=== PATIENT | male | born 1960 | race Caucasian/White ===

== ENCOUNTER → 2018-06-19 12:45 | Outpatient (CLI) | payer MEDICAID ==
[2018-06-19 13:31] LABS: BASOPHILS 0.1 % (0-2); EOSINOPHILS 1.5 % (0-7); HEMATOCRIT 44.5 % (42.0-54.0); HEMOGLOBIN 15.2 g/dL (13.5-17.5); IMMATURE GRANULOCYTES 0.3 % (0-5); MCH 32.9 pg (26.0-34.0); MCHC 34.2 g/dL (31.0-37.0); MCV 96.3 fL (80.0-100.0); MEAN PLATELET VOLUME 11.2 fL (7.4-10.4); MONOCYTES 7.5 % (2-11); NEUTROPHILS 54.6 % (40-80); PLATELET COUNT 160 10x3/uL (130-400); RBC 4.62 10x6/uL (4.20-6.10); WBC 7.2 10x3/uL (4.8-10.8)
[2018-06-19 14:08] LABS: ALBUMIN 3.9 g/dL (3.4-5.0); ALKALINE PHOSPHATASE 45 U/L (46-116); ALT (SGPT) 40 U/L (10-68); CALC OSMOLALITY 279 mosm/kg (275-300); CARBON DIOXIDE 26.8 mmol/L (21.0-32.0); CHLORIDE - SERUM 105 mmol/L (98-107); CHOL - HDL RATIO 3.6 ratio (2.3-4.9); CHOLESTEROL, TOTAL 156 mg/dL (0-200); CREATININE - SERUM 0.8 mg/dL (0.6-1.3); GLUCOSE 101 mg/dL (74-106); HDL CHOLESTEROL 43 mg/dL (32-96); LDL CHOLESTEROL 99 mg/dL (0-100); LDL-HDL RATIO 2.3 ratio (1.5-3.5); PROTEIN - SERUM 7.7 g/dL (6.4-8.2); SODIUM 140 mmol/L (136-145); THYROID STIMULATING HORMONE 1.73 uIU/mL (0.36-3.74); TRIGLYCERIDE 71 mg/dL (30-200); UREA NITROGEN 14 mg/dL (7-18); eGFR NON AFRICAN AMERICAN > 90 mL/min (90-120)
[2018-06-20 08:20] LABS: HEPATITIS C ANTIBODY >11.0 (0.0-0.9)
== END | disposition home or self-care (01) ==
LOC: D.LAB 12:45
PROVIDERS: Family Medicine
DX: M19.90 Unspecified osteoarthritis, unspecified site (principal); F17.200 Nicotine dependence, unspecified, uncomplicated; R39.15 Urgency of urination

== ENCOUNTER → 2019-11-26 11:19 | Outpatient (CLI) | payer OTHER | END | disposition home or self-care (01) | LOC: D.CT 11:19 | PROVIDERS: ATTEND Thoracic Surgery (Cardiothoracic Vascular Surgery) | DX: I70.203 Unspecified atherosclerosis of native arteries of extremities, bilateral legs (principal) ==

== ENCOUNTER → 2019-12-10 08:51 | Outpatient (CLI) | payer OTHER | END | disposition home or self-care (01) | LOC: D.HCCARDIO 08:51 → D.HCCECHO 14:00 | PROVIDERS: ATTEND Internal Medicine Cardiovascular Disease | DX: I10 Essential (primary) hypertension (principal) ==

== ENCOUNTER 2019-12-19 06:11 | Outpatient (CLI) | payer OTHER ==
[~2019-12-19] VITALS: Ht 182.9 cm; Wt 86.4 kg
--- NOTE | ~2019-12-19 | HEMODYNAMI ---
PATIENT:FLORENTIN AWAD MEDICAL RECORD: [id number] : 60 LOCATION:D.CAT ADMISSION DATE: 12/19/19 Generatedon:12/19/20198:17 Patient name: FLORENTIN AWAD Patient #: [id number] SSN: [id number] : 1960 Date of study: 12/19/2019 Page: Of Hemodynamic Procedure Report Patient Data Patient Demographics Procedure consent was obtained First Name: FLORENTIN Gender: Male Last Name: DELMI : 1960 Middle Initial: TAISHA Age: 59 year(s) Patient #: [id number] Race: SSN: [id number] Additional ID: [id number] Contact details Address: [address] [place] [address] State: [place] City: [place] Zip code: [address] Past Medical History Performed procedures and imaging results Date Procedure Procedure Results Comments 12/10/2019 Stress testing Positive->Intermediate with SPECT MPI risk Allergies: No known allergies Admission Admission Data Admission Date: 12/19/2019 Admission Time: 6:11 Arrival Date: 12/19/2019 Arrival Time: 0:00 Admit Source: Other Insurance Payor: Private health insurance [facility] #: [id number] Height (in.): 72 BSA: 2.09 (m2) Height (cm.): 182.88 BMI: 25.82 (kg/m2) Weight (lbs.): 190.39 Weight (kg.): 86.36 Lab Results Lab Result Date: 12/19/2019 Lab Result Time: 0:00 Biochemistry Name Units Result Min Max BUN mg/dl 22 --(----)-* 7 18 Creatinine mg/dl 0.9 --(-*--)-- 0.6 1.3 eGFR ml/min 90 --(*---)-- 90 120 NONAFRICAN CBC Name Units Result Min Max Hematocrit % 42.3 --(*---)-- 42 54 Hemoglobin g/dl 14.1 --(*---)-- 13.5 17.5 Procedure Procedure Types Cath Procedure Diagnostic Procedure [facility] w/Coronaries Sedation Charges Moderate Sedation up to 15 minutes Procedure Description Procedure Date Procedure Date: 12/19/2019 Procedure Start Time: 8:01 Procedure End Time: 8:16 Procedure Staff Name Function Yonis Mathews MD Performing Physician Alberto Godwin RN Nurse Montserrat Puri RT Monitor Lindsey Prather RT Scrub Procedure Data Cath Procedure Fluoroscopy Diagnostic fluoroscopy Total fluoroscopy Time: 3.5 time: 3.5 min min Diagnostic fluoroscopy Total fluoroscopy dose: 450 dose: 450 mGy mGy Contrast Material Contrast Material Type Amount (ml) Isovue 370 70 Entry Location Entry Primary Successful Side Size Upsize Upsize Entry Closure Alex ccessful Closure Location (Fr) 1 (Fr) 2 (Fr) Remarks Device Remarks Radial Right 6 Fr Mechanical artery Short Compression Estimated blood loss: 5 ml Diagnostic catheters Device Type Used For End Catheter Placement DIAGNOSTIC Oliver 110cm Procedure 5Fr catheter ([id number]) DIAGNOSTIC Pigtail 5Fr Procedure catheter ([id number]) Procedure Complications No complications Procedure Medications Medication Administration Route Dosage Oxygen etCO2 Nasal cannula 2 l/min Lidocaine 2% added to field 20 Heparin Flush Bag added to field 2 bags (1000units/500ml NS) 0.9% NaCl I.V. 100 ml/hr Radial Cocktail I.A. 1 syringe (Verapamil 2mg/Nitro 400mcg/Heparin 1500units) Versed I.V. 2 mg Fentanyl I.V. 50 mcg Versed I.V. 1 mg Fentanyl I.V. 50 mcg Versed I.V. 1 mg Fentanyl I.V. 50 mcg Versed I.V. 1 mg Hemodynamics Rest BSA: 2.09 (m2) HGB: 14.1 (g/dl) O2 Consumption: Estimated: 241.12 (ml/min) O2 Co nsumption indexed: Estimated:115.37 (ml/min/m) Heart Rate: 64 (bpm) Pressure Samples Time Site Value (mmHg) Purpose Heart Use Rate(bpm) 8:05 LV 119/64,64 Snapshot 80 8:06 AO 124/78(98) Pullback 99 Gradients Valve Time Site Site 2 Mean SEP/DFP Peak To Heart Use 1 (mmHg) (sec/min) Peak Rate (mmHg) (bpm) Aortic 8:06 LV AO 99 124/78(98) Snapshots Pre Cath Intra NCS Post Cath Vital Signs Time Heart Resp SPO2 etCO2 NIBP Rhythm Pain Sedation Rate (ipm) (%) (mmHg) (mmHg) Status Level (bpm) 7:52:47 64 18 94 0 117/71(93) NSR 0 (11) 10(A) , No pain 7:57:01 61 14 93 0 113/70(89) NSR 0 (11) 10(A) , No pain 8:01:15 69 13 94 0 122/66(92) NSR 0 (11) 10(A) , No pain 8:06:39 68 12 93 0.7 118/62(74) NSR 0 (11) 9(A) , No pain 8:10:47 72 13 94 0 100/65(83) NSR 0 (11) 9(A) , No pain 8:16:10 66 12 94 0 100/56(67) NSR 0 (11) 10(A) , No pain Medications Time Medication Route Dose Verified Delivered Reason Notes Effectiveness by by 7:52:33 Oxygen etCO2 2 l/min Yonis Buffie used for Nasal Reid Godwin RN procedure cannula 7:52:39 Lidocaine 2% added 20ml Yonis Yonis for local to vial Reid Mathews MD anesthetic field 7:52:45 Heparin Flush added 2 bags Yonis Yonis used for Bag to Reid Mathews MD procedure (1000units/500ml field NS) 7:52:53 0.9% NaCl I.V. 100 Yonis Buffie Per ml/hr Reid Godwin RN physician 7:53:03 Radial Cocktail I.A. 1 Yonis Yonis for (Verapamil syringe Reid Mathews MD vasodilation 2mg/Nitro 400mcg/Heparin 1500units) 7:55:50 Versed I.V. 2 mg Yonis Buffie for sedation Reid Godwin RN 7:55:56 Fentanyl I.V. 50 mcg Yonis Buffie for sedation Reid Godwin RN 7:59:29 Versed I.V. 1 mg Yonis Buffie for sedation Reid Godwin RN 7:59:33 Fentanyl I.V. 50 mcg Yonis Buffie for sedation Reid Godwin RN 8:05:55 Versed I.V. 1 mg Yonis Buffie for sedation Reid Godwin RN 8:05:58 Fentanyl I.V. 50 mcg Yonis Dominguez for sedation Reid Godwin RN 8:10:08 Versed I.V. 1 mg Yonis Alberto for sedation Reid Godwin RN Procedure Log Time Note 7:24:01 Informed consent obtained and on chart 7:24:56 Lab Result : eGFR NONAFRICAN 90 ml/min 7::56 Lab Result : Creatinine 0.9 mg/dl 7::56 Lab Result : BUN 22 mg/dl 7:24:56 Lab Result : Hematocrit 42.3 % 7:24:56 Lab Result : Hemoglobin 14.1 g/dl 7:25:57 Arrival Date: 12/19/2019 12:00:00 AM 7:26:01 Admit Source: Other 7:26:06 Patient Height : 72 inches 7:26:11 Patient Weight : 190.39 lbs 7:26:18 Insurance Payor : Private health insurance 7:26:34 Diagnostic Cath Status : Elective 7:26:53 Patient allergic to No known allergies 7:27:41 Procedure Status Elective Heart Cath (OP). 7:27:42 Time tracking: Regular hours (M-F 7:00 - 5:00) 7:27:46 Plan of Care:Hemodynamics will remain stable., Cardiac rhythm will remain stable., Comfort level will be maintained., Respiratory function will remain adequate., Patient/ family verbilizes understanding of procedure., Procedure tolerated without complication., Recovers from procedure without complications.. 7:33:51 Alberto Godwin RN sent for patient. Start room use. 7:35:24 Lab results completed and on chart. 7:35:26 Stress Test: yes; abnormal MULTIVESSEL 7:35:30 Risk of Mortality: 0.1 7:35:32 Risk of blood transfusion: 0.1 7:35:35 Risk of AMARILIS: 0.1 7:35:37 Alarms reviewed by R. N. 7:35:37 Sharps counted by scrub and verified by R.N. 7:35:53 H&P Date Dictated: 11/28/2019 Within 30 days and on chart.. 7:35:55 Pre-procedure instructions explained to patient. 7:35:56 Pre-op teaching completed and patient verbalized understanding. 7:35:58 Family unavailable. 7:36:00 Patient NPO since Midnight. 7:39:32 Patient received from Pre/Post Procedure Room to CCL 1 Alert and oriented. Tansferred to table in Supine position. 7:39:33 Warm blankets applied, and arvind hugger turned on for patient comfort. 7:39:34 Correct patient and procedure confirmed by team. 7:39:34 ECG and BP/O2 sat monitors applied to patient. 7:39:42 Is the patient allergic to Iodine/contrast media? No. 7:39:44 Was the patient premedicated? N/A 7:39:48 Is patient on blood thinner?No 7:50:50 Patient diabetic? No. 7:50:52 If diabetic: On Metformin? N/A 7:50:54 ----Pre-sedation anethsthesia assessment.---- 7:50:57 Previous problem with sedation/anesthesia? No ? 7:50:58 Snore? Yes 7:50:59 Sleep apnea? No 7:51:00 Deviated septum? No 7:51:03 Sticks out tongue? Yes 7:51:07 Opens mouth fully? Yes 7:51:11 Airway obstruction? No ? 7:51:13 Dentures? No ? 7:51:16 Pre procedure: right dorsailis pedis pulse 2+ Normal; easily identifiable; not easily obliterated 7:51:18 Modified Pedro Luis's test Ulnar < 7 seconds 7:51:21 Patient pain scale 0/10 ?. 7:51:28 IV patent on arrival in left antecubital with 0.9% NaCl at O. 7:51:36 Right Radial & Right Groin area was prepped with chlora-prep and draped in sterile fashion 7:51:41 Full Disclosure recording started 7:51:42 Vital chart was started 7:51:48 Use device set Radial Dx or PCI 7:51:49 ACIST Syringe (68177) opened to sterile field. 7:51:50 Medline Cath Pack ([id number]) opened to sterile field. 7:51:50 Bag Decanter () opened to sterile field. 7:51:51 ACIST Hand Control (01287) opened to sterile field. 7:51:52 ACIST Manifold (19184) opened to sterile field. 7:51:53 MBrace Wrist Support ([id number]) opened to sterile field. 7:51:53 NEEDLE Cook 21G 4cm Radial ([id number]) opened to sterile field. 7:51:55 EMERALD Guide Wire (034-471) opened to sterile field. 7:51:55 SHEATH 6FR RAIN (5262571) opened to sterile field. 7:52:05 Baseline sample Acquired. 7:52:10 Rhythm: sinus rhythm 7:52:33 Oxygen 2 l/min etCO2 Nasal cannula was administered by Alberto Godwin RN; used for procedure; Verbal order read back and verified. 7:52:39 Lidocaine 2% 20ml vial added to field was administered by Yonis Mathews MD; for local anesthetic; Verbal order read back and verified. 7:52:45 Heparin Flush Bag (1000units/500ml NS) 2 bags added to field was administered by Yonis Mathews MD; used for procedure; Verbal order read back and verified. 7:52:53 0.9% NaCl 100 ml/hr I.V. was administered by Alberto Godwin RN; Per physician; Verbal order read back and verified. 7:53:03 Radial Cocktail (Verapamil 2mg/Nitro 400mcg/Heparin 1500units) 1 syringe I.A. was administered by Yonis Mathews MD; for vasodilation; Verbal order read back and verified. 7:53:56 --------ALL STOP TIME OUT------ 7:53:56 Final Timeout: patient, procedure, and site verified with staff and physician. All members of the team are in agreement. 7:53:58 Right Radial & Right Groin site verified by team. 7:54:02 Fire Safety Assessment: A--An alcohol-based skin anteseptic being used preoperatively., C--Open oxygen or nitrous oxide is being used., D--An ESU, laser, or fiber-optic light is being used. 7:54:07 Physical assessment completed. ASA score P 2 - A patient with mild systemic disease as per Yonis Mathews MD. 7:54:10 1) 90+ Normal kidney functon but urine findings or structural abnormalities or genetic trait point to kidney disease. 7:54:13 Maximum allowable contrast dose (3.7 X eGFR X 0.75)250 ml. 7:54:17 Sedation plan: IV Moderate Sedation Medication:Versed, Fentanyl 7:55:50 Versed 2 mg I.V. was administered by Alberto Godwin RN; for sedation; Verbal order read back and verified. 7:55:56 Fentanyl 50 mcg I.V. was administered by Alberto Godwin RN; for sedation; Verbal order read back and verified. 7:59:29 Versed 1 mg I.V. was administered by Alberto Godwin RN; for sedation; Verbal order read back and verified. 7:59:33 Fentanyl 50 mcg I.V. was administered by Alberto Godwin RN; for sedation; Verbal order read back and verified. 8:00:53 Procedure started. 8:01:01 Local anesthetic to right radial artery with Lidocaine 2% by Yonis Mathews MD.INITIAL ACCESS ONLY 8:02:40 A 6 Fr Short sheath was inserted into the Right Radial artery 8:03:40 A DIAGNOSTIC Oliver 110cm 5Fr catheter ([id number]) was advanced over the wire and used for Procedure. 8:05:39 Injector settings: Ml/sec: 5, Volume: 15, 8:05:41 LV gram done using RIVAS 8:05:43 LV hemodynamics recorded. 8:05:53 EF : 50 % 8:05:55 Versed 1 mg I.V. was administered by Alberto Godwin RN; for sedation; Verbal order read back and verified. 8:05:58 Fentanyl 50 mcg I.V. was administered by Alberto Godwin RN; for sedation; Verbal order read back and verified. 8:06:16 LCA angiography performed. 8:06:44 Injector settings: Ml/sec: 3, Volume: 6, 8:09:11 RCA angiography performed. 8:09:14 Injector settings: Ml/sec: 3, Volume: 6, 8:10:08 Versed 1 mg I.V. was administered by Alberto Godwin RN; for sedation; Verbal order read back and verified. 8:10:39 ACCDominant side:Co-Dominant 8:11:49 A DIAGNOSTIC Pigtail 5Fr catheter ([id number]) was advanced over the wire and used for Procedure. 8:11:50 Catheter removed. 8:13:29 ZEPHYR REGULAR TR BAND (206661) opened to sterile field. 8:13:54 Sheath removed intact; hemostasis achieved with Mechanical Compression to the Right Radial artery. 8:13:56 Procedure ended.(Physican Out) 8:14:44 Fluoroscopy time 03.50 minutes. 8:14:48 Fluoroscopy dose: 450 mGy 8:14:48 Flurop Dose total: 450 8:14:54 Dose Area Product 67353 mGy/cm. 8:15:05 Contrast amount:Isovue 370 70ml. 8:15:08 Maximum allowable dose exceeded? No. 8:15:09 Sharps counted by scrub and verified by R.N. 8:15:15 Post Procedure Pulses reassessed and unchanged 8:15:19 Post procedure: right dorsailis pedis pulse 2+ Normal; easily identifiable; not easily obliterated. 8:15:22 Post-procedure physical assessment completed. ASA score P 2 - A patient with mild systemic disease as per Yonis Mathews MD. 8:15:25 Post procedure rhythm: unchanged. 8:15:28 Estimated blood loss: 5 ml 8:15:29 Post procedure instruction explained to patient.Patient verbalizes understanding. 8:15:29 Patient needs reinforcement of post procedure teaching. 8:15:42 Procedure type changed to Cath procedure, Diagnostic procedure, LHC, [facility] w/Coronaries, Sedation Charges, Moderate Sedation up to 15 minutes 8:16:02 [place] band inflated with 7cc of air. 8:16:14 Procedure and supply charges have been captured, reviewed, submitted and are correct. 8:16:17 Procedure Complication : No complications 8:16:19 Vital chart was stopped 8:16:[address] [facility] Findings: MVD- MD will discuss options w/ pt 8:16:23 Operative report dictated upon procedure completion. 8:16:24 See physician's report for complete and final results. 8:16:26 Report given to Pre/Post Procedure Room. 8:16:30 Patient transfered to Pre/Post Procedure Room with Stretcher. 8:16:32 Procedure ended. 8:16:32 Full Disclosure recording stopped 8:16:38 End room use (Document Last) 8:16:50 End room use (Document Last) 8:17:08 End room use (Document Last) Device Usage Item Name Manufacture Quantity Catalog Hospital Part Current Minima l Lot# / Number Charge Number Stock Stock Serial# Code ACIST Acist 1 44541 [id number] 249493 030855 20 [employer] (32626Picmonic Inc Medline Medline 1 [id number] 33800 362129 5 Cath Pack ([id number]) Bag Microtek 1 108777 06420 312608 5 Decanter Medical Inc. () ACIST Hand Acist 1 93094 776885 577046 459778 5 Control Medical (58258) Systems Inc ACIST Acist 1 93730 381711 448201 732568 5 Manifold Medical (27772) Systems Inc MBrace Advanced 1 140-0250-00 853569 90062 411810 5 Wrist Vascular Support Dynamics ([id number]) NEEDLE Cook Cook Medical 1 [id number] 182815 511647 460445 5 21G 4cm Radial (I43286) EMERALD Cardinal 1 502-455 528179 176111 552895 5 Guide Wire Health (502-455) SHEATH 6FR Cardinal 1 8959485 814477 1424025 443118 5 [facility] (2630460) DIAGNOSTIC Terumo 1 405023 348108 480077 182289 5 Oliver 110cm 5Fr catheter (234340) DIAGNOSTIC Cardinal 1 [id number] 863727 098781 575838 5 Pigtail 5Fr Health catheter (372600I) ZEPHYR Cardinal 1 655528 347004 9688668 860193 5 REGULAR TR Health BAND (944914) Signature Audit Logan Stage Time Signature Unsigned Intra-Procedure 12/19/2019 Montserrat Puri 8:16:50 AM RT(R) Intra-Procedure 12/19/2019 Alberto Godwin RN 8:17:08 AM Intra-Procedure 12/19/2019 Yonis Mathews MD 8:17:57 AM [id number] [place] [address]
[2019-12-19] MEDS ORDERED: LISINOPRIL20 MG PO (06:21)
[2019-12-19] MEDS ORDERED: BAYER CHEWABLE81 MG PO (06:22)
[2019-12-19 06:38] VITALS: BP 128/68; Ht 182.9 cm; Wt 86.4 kg
[2019-12-19 06:58] LABS: BASOPHILS 0.3 % (0-2); HEMATOCRIT 42.3 % (42.0-54.0); HEMOGLOBIN 14.1 g/dL (13.5-17.5); IMMATURE GRANULOCYTES 0.4 % (0-5); LYMPHOCYTES 42.2 % (15-50); MCH 31.6 pg (26.0-34.0); MCHC 33.3 g/dL (31.0-37.0); MCV 94.8 fL (80.0-100.0); MEAN PLATELET VOLUME 10.7 fL (7.4-10.4); MONOCYTES 7.6 % (2-11); NEUTROPHILS 46.5 % (40-80); PLATELET COUNT 175 10x3/uL (130-400); RBC 4.46 10x6/uL (4.20-6.10); RDW 13.1 % (11.5-14.5)
[2019-12-19 07:12] LABS: ALT (SGPT) 17 U/L (10-68); CALC OSMOLALITY 278 mosm/kg (275-300); CARBON DIOXIDE 24.6 mmol/L (21.0-32.0); CHLORIDE - SERUM 105 mmol/L (98-107); CHOL - HDL RATIO 5.8 ratio (2.3-4.9); CHOLESTEROL, TOTAL 181 mg/dL (0-200); CREATININE - SERUM 0.9 mg/dL (0.6-1.3); GLUCOSE 104 mg/dL (74-106); HDL CHOLESTEROL 31 mg/dL (32-96); LDL CHOLESTEROL 124 mg/dL (0-100); SODIUM 138 mmol/L (136-145); TRIGLYCERIDE 132 mg/dL (30-200); UREA NITROGEN 22 mg/dL (7-18); eGFR NON AFRICAN AMERICAN > 90 mL/min (90-120)
--- NOTE | 2019-12-19 08:25 | NUR ---
PT RECEIVED VIA STRETCHER BACK TO ROOM 6 FOR RECOVERY. PT SLEEPING BUT VERBALLY AROUSABLE, DENIES PAIN OR DISCOMFORT. ZYPHER BAND AND IMMOBILIZER TO R WRIST/ARM, NO S/S BLEEDING OR HEMATOMA NOTED. ARM PINK AND WARM, CAP REFILL BRISK. PT INSTRUCTED NOT TO USE R ARM, HE VERBALIZED UNDERSTANDING. PT PLACED ON CARDIAC MONITORS AND O2 VIA NC AT 2L. HR NSR RATE 61, BP 93/54, RR 11 SAT 96. IV PATENT INFUSING VIA ORDERS TO L ARM. CALL LIGHT IN REACH
--- NOTE | 2019-12-19 08:45 | NUR ---
PT RESTING COMFORTABLY W/O COMPLAINTS. ZBAND AND IMMOBILIZER IN PLACE, NO S/S HEMATOMA. CAP REFILL BRISK. HR 69, BP 92/50, RR 16. CALL LIGHT IN REACH
--- NOTE | 2019-12-19 09:30 | NUR ---
PT MORE AWAKE, DENIES PAIN OR DISCOMFORT. ZBAND AND IMMOBILIZER IN PLACE, CAP REFILL BRISK NO S/S HEMATOMA OR BLEEDING. 4CC AIR REMOVED W/O BLEEDING OR SWELLING NOTED. HOB ELEVATED, COFFEE SERVED PER REQUEST. VSS. CALL LIGHT IN REACH
--- NOTE | 2019-12-19 10:05 | NUR ---
DR SIMEON AT BS DISCUSSING SURGERY OPTIONS. 3 ADD'L CC AIR REMOVED FROM Z BAND W/O BLEEDING NOTED. ARM PINK AND WARM, CAP REFILL BRISK. HR 55, BP 106/66, RR 16, SAT 95 ON ROOM AIR AFTER O2 REMOVED. PT DENIES PAIN OR NEEDS AT THIS TIME. 500 CC CLEAR YELLOW URINE OUT IN URINAL. CALL LIGHT IN REACH
--- NOTE | 2019-12-19 10:30 | NUR ---
DISCHARGE INSTRUCTIONS REVIEWED W PT HE VERBALIZED UNDERSTANDING. IV REMOVED W CATH INTACT, MONITORS AND O2 REMOVED. REMAINING AIR AND Z BAND REMOVED W/O BLEEDING OR SWELLING NOTED. 2X2 AND SM TEGADERM DRESSING APPLIED. IMMOBILIZER REPLACED. DR BECERRA FROM ANESTHESIA AT DISCUSSING SURGERY PLANS.
--- NOTE | 2019-12-19 11:00 | NUR ---
PT UP TO DRESS, WAITING ON LAB TO DRAW BLOOD THEN WILL DISCHARGE. RECOVERY COMPLETED.
--- NOTE | 2019-12-19 11:20 | NUR ---
PT DISCHARGED VIA WC TO S/O WAITING IN PRIVATE VEHICLE. PT HAD ALL BELONGINGS AND DISCHARGE INFORMATION IN HAND.
[2019-12-19 11:35] LABS: BILIRUBIN NEGATIVE (NEGATIVE); GLUCOSE NEGATIVE (NEGATIVE); KETONE NEGATIVE (NEGATIVE); NITRITE NEGATIVE (NEGATIVE); SPECIFIC GRAVITY 1.015 (1.005-1.020); UROBILINOGEN NORMAL (NORMAL)
== END 2019-12-19 11:20 | disposition home or self-care (01) ==
LOC: D.CATH 06:11
PROVIDERS: Thoracic Surgery (Cardiothoracic Vascular Surgery); ATTEND Internal Medicine Cardiovascular Disease
DX: I25.119 Atherosclerotic heart disease of native coronary artery with unspecified angina pectoris (principal); R94.39 Abnormal result of other cardiovascular function study; E78.5 Hyperlipidemia, unspecified; Z72.0 Tobacco use; G83.14 Monoplegia of lower limb affecting left nondominant side; I73.9 Peripheral vascular disease, unspecified; I10 Essential (primary) hypertension

== ENCOUNTER 2019-12-24 07:30 | Inpatient (IN) | payer OTHER ==
[~2019-12-24] VITALS: Ht 182.9 cm; Wt 96.2 kg
[~2019-12-24 07:30] MED LIST: BAYER CHEWABLE81 MG PO; LISINOPRIL20 MG PO
[2019-12-26] VITALS (24 sets, daily range): BP systolic 89–147; BP diastolic 41–76; BMI 25.3; BMI 26.3
--- NOTE | 2019-12-26 11:39 | NUR ---
PT ARRIVED TO UNIT AT THIS TIME VIA BED ACCOMPANIED BY HOSPITAL STAFF. PT ALERT BUT GROGGY. ANSWERS QUESTIONS APPROPIATELY. GROIN SITE, DRESSINGS, AND MIDLINE ABDOMEN INCISION SITE AND DRESSINGS CDI. NO S/S HEMATOMA OR DISCOLORATION. WILL CONTINUE PLAN OF CARE.
--- NOTE | 2019-12-26 12:57 | NUR ---
DR MARTI NOTIFIED OF CONSULT.
--- NOTE | 2019-12-26 13:11 | NUR ---
DR SIMEON NOTIFIED OF ABG RESULTS INCLUDING K LEVELS ON ABG, NO NEW ORDERS RECIEVED. VSS. NO ACUTE DISTRESS NOTED. WILL CONTINUE PLAN OF CARE.
--- NOTE | 2019-12-26 13:11 | NUR ---
DR MARQUES NOTIFIED OF CONSULT.
[2019-12-26 13:23] LABS: HEMATOCRIT 38.9 % (42.0-54.0); HEMOGLOBIN 12.9 g/dL (13.5-17.5); MCH 31.9 pg (26.0-34.0); MCHC 33.2 g/dL (31.0-37.0); MEAN PLATELET VOLUME 10.3 fL (7.4-10.4); RBC 4.05 10x6/uL (4.20-6.10); RDW 13.5 % (11.5-14.5); WBC 15.5 10x3/uL (4.8-10.8)
[2019-12-26 13:39] LABS: CALC OSMOLALITY 281 mosm/kg (275-300); CALCIUM 7.3 mg/dL (8.5-10.1); CHLORIDE - SERUM 105 mmol/L (98-107); GLUCOSE 118 mg/dL (74-106); POTASSIUM - SERUM 4.5 mmol/L (3.5-5.1); SODIUM 140 mmol/L (136-145); UREA NITROGEN 17 mg/dL (7-18); eGFR NON AFRICAN AMERICAN 81 mL/min (90-120)
[2019-12-26 13:45] LABS: ALBUMIN 3.2 g/dL (3.4-5.0); ALKALINE PHOSPHATASE 36 U/L (30-120); ALT (SGPT) 15 U/L (10-68); BILIRUBIN - TOTAL 0.92 mg/dL (0.2-1.3); PROTEIN - SERUM 5.5 g/dL (6.4-8.2)
--- NOTE | 2019-12-26 14:42 | NUR ---
LYING IN BED RESTING AT THIS TIME, RESPIRATIONS STEADY AND UNLABORED. VSS. NO ACUTE DISTRESS NOTED. AWAKENS WHEN SPOKEN TO. GROIN SITES KEPS STRAIGHT, ALL DRESSINGS AND INCISIONAL SITES NOTED CDI WITH NO S/S HEMATOMA. WILL CONTINUE PLAN OF CARE.
--- NOTE | 2019-12-26 16:03 | NUR ---
NO ACUTE DISTRESS NOTED. NO CHANGE. VSS. INCISION SITES CDI, NO S/S HEMATOMA. CALL LIGHT IN REACH. PT BEGINNING TO BECOME MORE ALERT, HOWEVER STILL RESTING. RESPIRATIONS STEADY AND UNLABORED, AWAKENS EASILY WHEN STAFF WALKS INTO ROOM. WILL CONTINUE PLAN OF CARE.
--- NOTE | 2019-12-26 17:29 | NUR ---
RECIEVED CALL FROM PTS SISTER, UPDATES PROVIDED AFTER SISTER STATED PASSWORD, EMERGENCY CONTACT INFORMATION UPDATED. VSS. NO ACUTE DISTRESS NOTED. WILL CONTINUE PLAN OF CARE.
--- NOTE | 2019-12-26 17:57 | NUR ---
DR SIMEON CONTACTED FOR IV FLUID CLARIFICATION, ORDERS RECIEVED FOR D5 1/2 NS WITH 20MEQ K AT 100ML/HR. ALSO STATED TO KEEP PT WITH STRICT NPO, AND THAT PT WILL BE NPO FOR THE NEXT FEW DAYS. ORDERS PLACED.
--- NOTE | 2019-12-26 18:38 | NUR ---
PT HAS LAID FLAT X 6H POSTOP. ALL SITES CDI, DRESSINGS CDI, NO S/S HEMATOMA. ALL PULSES PALPABLE. PT SITTING UP IN BED WATCHING TV. ALSO NOTED TEMP 37.8 CELCEUS, DR SIMEON NOTIFIED.
--- NOTE | 2019-12-26 19:00 | NUR ---
RE[PORT RECEIVED AT BEDSIDE, SHIFT ASSESSMENT COMPLEE PER FLOW SHEET, PT AAOx4, ANSWERES ALL QUESTIONS APPROPRIATLY, HOB ELEVATED 30 DEGREES, RT IJ CVL PATENT DRSG C/D/I, EPIDURAL SIE AND DRSG C/D/I PUMP INFUSING 8ML/HR CONTINUOUS WITH 4 ML Q15 MIN PUBLICATION DESIGNER DOSE, PUBLICATION DESIGNER TEACHING COMPLETED AND CONTROLLER IN REACH, PT DENIES PAIN, SENSORY AND MOTOR FUNCTION INTACT IN ALL EXTREMITIES, RT RADIAL ART & CVP LINES ZEROED WITH GOOD WAVEFORM NOTED ON CM, MID ABDOMINAL INCISION SITE AND DRSG C/D/I, BILATERAL GROIN INCISION SITES AND DRG'S C/D/I ITH NO S/S OF BLEED OR DISCOLORATION, CRITICORE LUNA CATH IN PLACE, PT ON NC @ 4L/MIN, I/S TEACHING AND USE COMPLETED [id number], TCDB DONE, NGT TO LIS VIA RIGHT NARE, VSS NSR ON CM, CALL LIGHT IN REACH, BED ALARM ON, FALL TEACHING PROVIDED AND INTERVENTIONS IN PLACE, PT DENIES NEEDS AT THIS TIME, WILL CONTINUE TO MONITOR
--- NOTE | 2019-12-26 19:07 | NUR ---
DR SIMEON NOTIFIED OF TEMP 99.3, STATED TO SIT PT UP, HAVE HIM COUGH, AND USE IS.
--- NOTE | 2019-12-26 19:30 | NUR ---
PT C/O ACUTE NAUSEA FEELING, PRN ZOFRAN GIVEN PER MAR/ORDERS, PT STATED NAUSEA RELEIF WITH MEDICATION, VSS, NSR ON CM, WILL CONTINUE TO MONITOR
--- NOTE | 2019-12-26 20:20 | NUR ---
ZACHARY RETURNS SUPERVISOR WITH ANESTHESIA AT BEDSIDE, EPIDURAL ORDERS REVIEWED AND PLACED, INFORMED ZACHARY RETURNS SUPERVISOR ABOUT PT'S ACUTE EPISODE OF NAUSEA THAT WAS RESOLVED WITH PRN ZOFRAN MED, PT VSS, NSR ON CM, DENIES PAIN OR NEEDS AT THIS TIME, WILL CONTINUE TO MONITOR
--- NOTE | 2019-12-26 23:00 | NUR ---
REASSESSMENT COMPLETE, NO ACUTE CHANGES FROM PRIOR ASSESSMENT, PT SLEEPING WAKES TO MINIMAL STIMULI WHEN RN ENTERS ROOM, PT WAKES AAOx4, DENIES PAIN OR NEEDS AT THIS TIME, ALL DRSG'S C/D/I, ALL PULSES PALPABLE, VSS, NSR ON CM, I/S COMPLETED 200-2500ML x10 WITH GOOD EFFORT, TCDB DONE, CALL LIGHT IN REACH, BED ALARM ON, WILL CONTINUE TO MONITOR
[2019-12-27] VITALS (35 sets, daily range): BP systolic 106–145; BP diastolic 42–77; Ht 182.9 cm; Wt 96.2 kg
--- NOTE | 2019-12-27 01:00 | NUR ---
PT RESTING IN BED COMFORTABLY, DENIES PAIN OR NEEDS AT THIS TIME, VSS, NSR ON CM, CALL LIGHT IN REACH, BED ALARM ON, WILL CONTINUE TO MONITOR
--- NOTE | 2019-12-27 03:00 | NUR ---
REASSESSMENT COMPLETE, NO ACUTE CHANGES FROM PRIOR ASSESSMENT, PT SLEEPING, WAKES AAOx4, DENIES PAIN OR NEEDS AT THIS TIME, I/S COMPLETED [id number] GOOD EFFORT TCDB DONE, VSS, NSR ON CM, DRSG'S C/D/I, ALL PULSES PALPABLE, REPOSITIONED IN BED FOR COMFORT, CALL LIGHT AND NUTRITION INTERNSHIP CONTROLLER IN REACH, BED ALARM ON, WILL CONTINUE TO MONITOR
[2019-12-27 05:43] LABS: HEMATOCRIT 35.6 % (42.0-54.0); HEMOGLOBIN 11.5 g/dL (13.5-17.5); MCHC 32.3 g/dL (31.0-37.0); MEAN PLATELET VOLUME 10.6 fL (7.4-10.4); RBC 3.71 10x6/uL (4.20-6.10); RDW 13.6 % (11.5-14.5)
[2019-12-27 05:51] LABS: WBC 11.4 10x3/uL (4.8-10.8)
[2019-12-27 05:59] LABS: ALBUMIN 2.8 g/dL (3.4-5.0); ALKALINE PHOSPHATASE 34 U/L (30-120); BILIRUBIN - TOTAL 0.67 mg/dL (0.2-1.3); CALC OSMOLALITY 276 mosm/kg (275-300); CALCIUM 7.2 mg/dL (8.5-10.1); CARBON DIOXIDE 24.4 mmol/L (21.0-32.0); CHLORIDE - SERUM 106 mmol/L (98-107); CREATININE - SERUM 0.8 mg/dL (0.6-1.3); GLUCOSE 131 mg/dL (74-106); POTASSIUM - SERUM 4.2 mmol/L (3.5-5.1); PROTEIN - SERUM 5.7 g/dL (6.4-8.2); SODIUM 137 mmol/L (136-145); UREA NITROGEN 15 mg/dL (7-18); eGFR NON AFRICAN AMERICAN > 90 mL/min (90-120)
[2019-12-27 06:05] LABS: ALT (SGPT) 19 U/L (10-68)
--- NOTE | 2019-12-27 08:18 | NUR ---
PT AWAKE AND ORIENTED. VSS, NITRO AT 5MCG. ALL ALARMS SET.
--- NOTE | 2019-12-27 10:40 | OP ---
PATIENT NAME: FLORENTIN AWAD MEDICAL RECORD: [id number] :60 LOCATION:D.CVI D.CV03 ADMISSION DATE:12/26/19 SURGEON: MORGAN SIMEON MD DATE OF OPERATION: 12/26/2019 SURGEON: Morgan Simeon MD PROCEDURE PERFORMED: Aortobifemoral bypass utilizing 12 x 6 bifurcated Hemashield graft. PREOPERATIVE DIAGNOSES: Aortoiliac occlusive disease with short distance claudication and early rest pain. COMPLICATIONS: None. SPECIMENS: None. CONDITION: Stable. DISPOSITION: CV ICU. BLOOD LOSS: 200 cc with 90 cc Cell Saver. OPERATIVE FINDINGS: 1. Severe aortic calcification below the renals with 1 relatively soft spot, the posterior wall calcium was removed and pledgeted sutures were used on the posterior wall and the proximal anastomosis. The distal aorta was transected and oversewn just above the bifurcation with excellent backflow after femoral anastomoses requiring oversewing of this stump with pledgeted sutures as well. 2. Right retroperitoneal vein bleeding responded to packing, no bleeding after reversal of heparin. 3. The left distal femoral as noted on the angiogram had severe posterior wall disease, so the distal half of the Cobra head was taken out over the superficial femoral. The patient had good Doppler signals, posterior tibial, dorsalis pedis at the conclusion of the case. OPERATIVE INDICATION: Claudication and early rest pain. PROCEDURE IN DETAIL: The patient brought to the operative suite. General anesthesia was obtained. The patient was prepped and draped. Vertical incision was made over both groin taken down to the common femoral, superficial femoral, profunda femoral, which were dissected out and encircled with vessel loops. Abdominal incision was made. Peritoneum was entered. The exploration revealed no masses. NG tube was in appropriate position. Transverse mesocolon was retracted upwardly. The retroperitoneum was identified by moving the small intestines to the right and actually layer off and out of the abdomen. They were packed out of the way. Retroperitoneum was entered. The infrarenal abdominal aorta was dissected out. A couple of large lumbar branches were encircled with vessel loops. Tunnels were made between the groin and both iliac arteries. Heparin was given. After the heparin had circulated, the inflow was clamped. The iliacs were clamped. The aorta was transected distally. Stump was oversewn. A 12 x 6 bifurcated Hemashield was brought into the wound, this sutured into place. Pledgeted sutures were used posteriorly. The graft was flushed. There was no bleeding at the anastomotic site. The graft limbs were OPERATIVE REPORT [id number] FLORENTIN AWAD brought through the retroperitoneum, and first the right and then the left were sutured onto the femoral arteries. Backbleeding was allowed. The graft was flushed and the anastomosis was completed after deairing and flow was restored, first to the right than the left. Good Doppler signals were noted, good augmentation. Retroperitoneal bleeding had stopped after reversal of the heparin and thorough irrigation was undertaken. The retroperitoneum was closed. The intestines were returned to the anatomic position and thorough irrigation with 1 liter of antibiotic saline was performed. The abdomen was closed with fascia, subcutaneous and clips. The groins were closed with 2 layers after antibiotic irrigation and skin clips. The patient is stable to ICU. TRANSINT:[id number] Voice Confirmation ID: [id number] DOCUMENT ID: [id number] MORGAN SIMEON MD at 1040 CC: NADIR TOMLIN M.D. and TANYA MARTI [id number] DICTATION DATE: 12/26/19 1159 COMMUNITY AMBASSADOR: 12/26/19 1253 ADM IN [facility] [id number] [place] [address]
--- NOTE | 2019-12-27 11:50 | NUR ---
DR SIMEON HERE. DOPPLER PULSES POSITIVE DP AND PT BLE. ART LINE DCD AND DSNG APPLIED AFTER PRESSURE HELD.
--- NOTE | 2019-12-27 13:44 | NUR ---
PT DANGLED AT BS, AIR OVERLAY MATTRESS APPLIED TO BED.
--- NOTE | 2019-12-27 17:56 | MORECARE ---
CASE MANAGEMENT DISCHARGE SUMMARY PATIENT: FLORENTIN AWAD UNIT: [id number] ADM DATE: 12/26/19 AGE: 59 : 60 SEX: M ROOM/BED: D.03 AUTHOR: JARET,DOC PHYSICIAN: REFERRING PHYSICIAN: DENIS ISMEON MD DATE OF SERVICE: 12/27/19 Discharge Plan Patient Name: FLORENTIN AWAD Facility: [facility]:[place] : 1960 Planned Disposition: Home Anticipated Discharge Date: Discharge Date: Expected LOS: Initial Reviewer: [email or web address] Initial Review Date: 12/26/2019 Generated: 12/27/19 6:56 pm Comments DCP- Discharge Planning Updated by [email or web address]: Michelle Butler on 12/27/19 4:[address] Patient Name: FLORENTIN AWAD Admission Status: Urgent Accout number: [id number] Admission Date: 12-26-2019 : 1960 Admission Diagnosis: Attending: DENIS SIMEON Current LOS: 1 Anticipated DC Date: Planned Disposition: Home Primary Insurance: [employer] Discharge Planning Comments: CM spoke with patient to complete initial dc planning assessment. CM educated patient on the CM role and verbal consent given by patient to complete assessment. Patient lives at home with family where he is independent with his care. At discharge plans to return home. CM discussed availability of home health, rehab services, and medical equipment. Patient will have family to transport him home. Patient denies any known discharge needs at this time. CM will continue to follow and will assist as needed with dc plans/needs. Wind Operations Supervisor: Michelle Butler DCPIA - Discharge Planning Initial Assessment Updated by [email or web address]: Michelle Butler on 12/27/19 5:50 pm * Is the patient Alert and Oriented? Yes * How many steps to enter\exit or inside your home? * PCP FIGUEROA * Pharmacy [facility] * Preadmission Environment Home with Family * ADLs Independent * Equipment None * List name and contact numbers for known caregivers / representatives who currently or will assist patient after discharge: HUGH OVALLE - [phone] * Verbal permission to speak to the caregivers and representatives has been obtained from the patient. Yes * Community resources currently utilized None * Additional services required to return to the preadmission environment? No * Can the patient safely return to the preadmission environment? Yes * Has this patient been hospitalized within the prior 30 days at any hospital? No Patient Name: FLORENTIN AWAD Page [phone] at 1756 All edits/amendments must be made on the electronic document DICTATION DATE: 12/27/191755 CREATIVE GURU: CHEN 12/27/191755 RPT#: [id number] DC DATE: STATUS: ADM IN [facility] [address] [place] [address] END OF REPORT
--- NOTE | 2019-12-27 19:00 | NUR ---
PT ASSESSMENT COMPLETED AT THIS TIME, NO CHANGES NOTED FROM NURSE REPORT, PT AWAKE AND USING IS, PULSES 2+ STRONG DOPPLER BILAT. PT DENIES COMPLAINTS, VSS, WILL MONITOR FOR CHANGES
--- NOTE | 2019-12-27 20:54 | NUR ---
PT C/O FEELING HOT TEMP WAS RECHECKED AND NOTED TO BE 100.5 ORAL
--- NOTE | 2019-12-27 20:59 | NUR ---
DR SIMEON CALLED AND UPDATED ON TEMP, ORDERS GIVEN FOR TYLENOL SUPP IF TEMP 102<, MD ALSO ADVISED TO HAVE PATIENT COUGH MORE AND USE IS TO IMPROVE LUNG FUNCTION
--- NOTE | 2019-12-27 23:00 | NUR ---
PT REASSESSMENT COMPLETED AT THIS TIME, NO CHANGES NOTED FROM PREVIOUS EXAM, VSS, WILL MONITOR FOR CHANGES
[2019-12-28] VITALS (23 sets, daily range): BP systolic 115–145; BP diastolic 56–76
--- NOTE | 2019-12-28 01:00 | NUR ---
PT RESTING WITH EYES CLOSED, RESP EVEN AND NON LABORED, VSS, WILL MONITOR FOR CHANGES
--- NOTE | 2019-12-28 03:00 | NUR ---
PT REASSESSMENT COMPLETED AT THIS TIME, NO CHANGES NOTED FROM PREVIOUS EXAM, VSS WILL MONITOR FOR CHANGES
--- NOTE | 2019-12-28 05:00 | NUR ---
PT RESTING WITH EYES CLOSED, RESP EVEN AND NON LABORED, VSS, WILL MONITOR FOR CHANGES
[2019-12-28 06:07] LABS: HEMATOCRIT 37.2 % (42.0-54.0); HEMOGLOBIN 12.4 g/dL (13.5-17.5); MCH 31.7 pg (26.0-34.0); MCHC 33.3 g/dL (31.0-37.0); MCV 95.1 fL (80.0-100.0); MEAN PLATELET VOLUME 10.8 fL (7.4-10.4); RBC 3.91 10x6/uL (4.20-6.10); WBC 12.3 10x3/uL (4.8-10.8)
[2019-12-28 06:32] LABS: ALBUMIN 3.1 g/dL (3.4-5.0); ALKALINE PHOSPHATASE 42 U/L (30-120); ALT (SGPT) 20 U/L (10-68); BILIRUBIN - TOTAL 0.97 mg/dL (0.2-1.3); CALC OSMOLALITY 265 mosm/kg (275-300); CALCIUM 8.4 mg/dL (8.5-10.1); CARBON DIOXIDE 24.3 mmol/L (21.0-32.0); CHLORIDE - SERUM 100 mmol/L (98-107); CREATININE - SERUM 0.8 mg/dL (0.6-1.3); GLUCOSE 128 mg/dL (74-106); PROTEIN - SERUM 6.6 g/dL (6.4-8.2); SODIUM 133 mmol/L (136-145); UREA NITROGEN 8 mg/dL (7-18); eGFR NON AFRICAN AMERICAN > 90 mL/min (90-120)
--- NOTE | 2019-12-28 07:00 | NUR ---
AWAKE EASILY TO VERBAL STIMULI SKIN WARM AND DRY. BACK EPIDURAL DRESSING DRY AND INTACT. CONTINUES TO INFUSE AT 8 ML HOUR CONTINUES. DENIES PAIN EXCEPT WHEN HE MOVES THEN SOME ABD PAIN. COCCYX AREA VERY RED DOES NOT DARRYL. FIRST MATTRESS ON BED. ABD AND BILATERAL FEMEROL DRESSINGS DRY AND INTACT. DENIES ANY NUMBNESS OR TINGLING ANY WHERE. IV RIJ DRESSING DRY AND INTACT INFUSING WITH D51/2NS AT 20 MEQ KCL AT 100 ML HOUR. LUNA CATH PATENT DRAINING CLEAR EMERALD URINE. MONITOR SR. OXYGEN AT 5 LITERS PER NC. TURNS SELF FROM SIDE WITH LINE ASSISTANCES
--- NOTE | 2019-12-28 09:00 | NUR ---
COMPLETE BED BATH GIVEN WITH ORAL CARE DONE. TURNS SELF FROM SIDE. STATES HE ONLY HURTS WHEN HE MOVES. NO NUMBNESS OR TINGLING.
--- NOTE | 2019-12-28 10:00 | NUR ---
PHYSICAL THERAPY HERE UP IN CHAIR AT BEDSIDE. TOLERATED FAIR. SOME NAUSEA ZOFRAN GIVEN WITH RELIEF OBTAINED.
--- NOTE | 2019-12-28 11:01 | NUR ---
DR. BLOOM HERE TO CHECK EPIDURAL
--- NOTE | 2019-12-28 11:11 | NUR ---
INCENTIVE SPIROMETRY DONE TO 2500 ML REGULAR. GOOD PRODUCTIVE COUGH
--- NOTE | 2019-12-28 12:00 | NUR ---
UP TO CHAIR PER PHYSICAL THERAPY. NG REMOVED TOLERATED WELL. DR. SIMEON HERE. PATIENT ABLE TO STAND WITH MINIMAL ASSISTANCES.
--- NOTE | 2019-12-28 14:00 | NUR ---
TURNING SELF FROM SIDE TO SIDE. DRESSING DRY AND INTACT. HAVING SOME LOWER ABD PAIN GAS PAIN. STATES HE IS PASSING ALOT OF GAS. USING EPIDURAL HARVEST CONTRACTOR NEEDED
--- NOTE | 2019-12-28 18:10 | NUR ---
WATCHING TV. SITTING UP IN BED. NO DISTRESS. DRESSINGS DRY AND INTACT.
--- NOTE | 2019-12-28 19:00 | NUR ---
PT ASSESSMENT COMPELTED AT THIS TIME, NO CHANGES NOTED FROM NURSE REPORT. pT AWAKE AND ALERT WATCHING TV, NO DISTRESS NTED, PT RATES PAIN 1/10. PT DENIES COMPLAINTS, VSS, WILL MONITOR FOR CHANGES
--- NOTE | 2019-12-28 21:10 | NUR ---
PT WATCHING TV AND TALKING ON THE PHONE, PT DENIES COMPLAINTS AT THIS TIME, VSS, WILL MONITOR FOR CHANGES
--- NOTE | 2019-12-28 23:00 | NUR ---
PT REASSESSMENT COMPLETED AT THIS TIME, NO CHANGES NOTED FROM PREVIOUS EXAM, VSS, WILL MONITOR FOR CHANGES
[2019-12-29] VITALS (24 sets, daily range): BP systolic 103–142; BP diastolic 48–95
--- NOTE | 2019-12-29 01:00 | NUR ---
PT RESTING WITH EYES CLOSED, RESP EVEN AND NONLABORED, NO DISTRESS NOTED, VSS, WILL MONITOR FOR CHANGES
--- NOTE | 2019-12-29 03:00 | NUR ---
PT REASSESSMENT COMPLETED AT THIS TIME, NO CHANGES NOTED FROM PREVIOUS EXAM, VSS, WILL MONITOR FOR CHANGES
--- NOTE | 2019-12-29 05:00 | NUR ---
PT RESTING WITH EYES CLOSED, RESP EVEN AND NON LABORED, PT AWAKES TO NAME AND DENIES COMPLAINTS, VSS, WILL MONITOR FOR CHANGES
[2019-12-29 06:38] LABS: HEMATOCRIT 35.4 % (42.0-54.0); HEMOGLOBIN 11.6 g/dL (13.5-17.5); MCH 31.4 pg (26.0-34.0); MCHC 32.8 g/dL (31.0-37.0); MCV 95.9 fL (80.0-100.0); MEAN PLATELET VOLUME 10.8 fL (7.4-10.4); RBC 3.69 10x6/uL (4.20-6.10); RDW 12.9 % (11.5-14.5); WBC 9.3 10x3/uL (4.8-10.8)
[2019-12-29 06:55] LABS: ALBUMIN 2.7 g/dL (3.4-5.0); ALKALINE PHOSPHATASE 35 U/L (30-120); ALT (SGPT) 22 U/L (10-68); BILIRUBIN - TOTAL 0.93 mg/dL (0.2-1.3); CALCIUM 8.1 mg/dL (8.5-10.1); CARBON DIOXIDE 27.1 mmol/L (21.0-32.0); CHLORIDE - SERUM 102 mmol/L (98-107); CHOL - HDL RATIO 4.4 ratio (2.3-4.9); CHOLESTEROL, TOTAL 131 mg/dL (0-200); CREATININE - SERUM 0.8 mg/dL (0.6-1.3); GLUCOSE 112 mg/dL (74-106); HDL CHOLESTEROL 30 mg/dL (32-96); LDL CHOLESTEROL 77 mg/dL (0-100); LDL-HDL RATIO 2.6 ratio (1.5-3.5); POTASSIUM - SERUM 4.2 mmol/L (3.5-5.1); PROTEIN - SERUM 6.3 g/dL (6.4-8.2); SODIUM 135 mmol/L (136-145); TRIGLYCERIDE 123 mg/dL (30-200); eGFR NON AFRICAN AMERICAN > 90 mL/min (90-120)
[2019-12-29 06:56] LABS: CALC OSMOLALITY 269 mosm/kg (275-300); UREA NITROGEN 11 mg/dL (7-18)
--- NOTE | 2019-12-29 19:00 | NUR ---
PT ASSESSMENT COMPLETED AT THIS TIME, NO CHANGES NOTED FROM NURSE REPORT, PT AAOX4 WATCHING TV, PT DENIES ANY COMPLAINTS AT THIS TIME, VSS, WILL MONITOR FOR CHANGES
--- NOTE | 2019-12-29 21:00 | NUR ---
PT AWAKE WATCHING TV, NO DISTRES NOTED, PT DENIES COMPLAINTS, VSS, WILL MONITOR FOR CHANGES
--- NOTE | 2019-12-29 23:00 | NUR ---
PT REASSESSMENT COMPLETED AT THIS TIME, NO CHANGES NOTED FROM PREVIOUS EXAM, VSS, WILL MONITOR FOR CHANGES
[2019-12-30] VITALS (13 sets, daily range): BP systolic 114–143; BP diastolic 55–79
--- NOTE | 2019-12-30 01:00 | NUR ---
PT RESTING WITH EYES CLOSED REPS EVEN AND NON LABORED, NO DISTRESS NOTED, VSS, WILL MONITOR FOR CHANGES
--- NOTE | 2019-12-30 03:00 | NUR ---
PT REASSESSMENT COMPLETED AT THIS TIME, NO CHANGES NOTED FROM PREVIOUS EXAM,VSS, WILL MONITOR FOR CHANGES
--- NOTE | 2019-12-30 05:00 | NUR ---
PT RESTING IN BED WATCHING TV, PT DENIES COMPAINTS AT THIS TIME
[2019-12-30 05:58] LABS: HEMATOCRIT 35.1 % (42.0-54.0); HEMOGLOBIN 11.8 g/dL (13.5-17.5); MCH 31.7 pg (26.0-34.0); MCHC 33.6 g/dL (31.0-37.0); MCV 94.4 fL (80.0-100.0); MEAN PLATELET VOLUME 10.4 fL (7.4-10.4); RBC 3.72 10x6/uL (4.20-6.10); RDW 12.5 % (11.5-14.5); WBC 7.5 10x3/uL (4.8-10.8)
[2019-12-30 06:17] LABS: ALBUMIN 2.8 g/dL (3.4-5.0); ALKALINE PHOSPHATASE 36 U/L (30-120); ALT (SGPT) 21 U/L (10-68); BILIRUBIN - TOTAL 1.07 mg/dL (0.2-1.3); CALC OSMOLALITY 272 mosm/kg (275-300); CALCIUM 8.4 mg/dL (8.5-10.1); CARBON DIOXIDE 27.1 mmol/L (21.0-32.0); CHLORIDE - SERUM 101 mmol/L (98-107); CREATININE - SERUM 0.8 mg/dL (0.6-1.3); GLUCOSE 110 mg/dL (74-106); POTASSIUM - SERUM 4.1 mmol/L (3.5-5.1); PROTEIN - SERUM 6.4 g/dL (6.4-8.2); SODIUM 136 mmol/L (136-145); UREA NITROGEN 13 mg/dL (7-18); eGFR NON AFRICAN AMERICAN > 90 mL/min (90-120)
--- NOTE | 2019-12-30 08:19 | NUR ---
0700 PT RECIEVED UP IN CHAIR ALERT AND ORIENTD O2 1L NC REMOVED SPO2 96 R IJ CVL DRESSING CDI, SEE IV FLOWSHEET, EPIDURAL DRESSING CDI, MIDLINE ABD AND BILAT GROIN DRESSING SITES CDI, LUNA DRAINING YELLOW URINE 0800 OK TO EAT CRACKERS AND SANDWICH FOR LUNCH PER DR SIMEON, PAGED DR TUBBS X2 FOR EPIDURAL REMOVAL, AWAITING CALL BACK
--- NOTE | 2019-12-30 09:39 | NUR ---
Nutrition Follow-up: POD 4 aortobifemoral bypass. NGT removed 12/27. Ok for pt to eat crackers and sandwich for lunch per Dr. Kraft. Wt: 211.6# (12/28); 198.4# (12/26) Last BM: 12/28 per chart Labs noted: Ca 8.4, Alb 2.8, A1C 6.3 Meds noted: KCl/D5 0.5NS @ 75, Protonix -Encourage PO intake and honor food preferences within diet restrictions. -Monitor wt. -RD following.
--- NOTE | 2019-12-30 10:36 | NUR ---
EPIDURAL DCD BY DR TUBBS, SITE CDI, LUNA DCD TIP INTACT, URINAL PROVIDED, CREAM APPLIED TO BUTTOCKS FOR REDNESS.
[2019-12-30] MEDS ORDERED: TOPROL XL25 MG PO (12:04)
[2019-12-30] MEDS ORDERED: PERCOCET 5-3251 TAB PO (12:10)
--- NOTE | 2019-12-30 12:15 | NUR ---
CVL DCD TIP INTACT NO SIGNS OF BLEEDING
--- NOTE | 2019-12-30 12:54 | NUR ---
SPOKE WITH DR MARTI STATED HE WOULD CALL PT NEXT MONDAY WITH FOLLOW UP INFO AND THAT OFFICE DID NOT NEED TO BE NOTIFIED. PER DR TAN NURSE TU PT OK TO DC WHEN VOIDS
--- NOTE | 2019-12-30 12:57 | NUR ---
PT VOIDED. OK TO DC HOME
--- NOTE | 2019-12-30 13:21 | NUR ---
DC TEACHING DONE, PT DENIES ALL QUESTIONS, ASSISTED TO CAR
--- NOTE | 2019-12-30 16:48 | MORECARE ---
CASE MANAGEMENT DISCHARGE SUMMARY PATIENT: FLORENTIN AWAD UNIT: [id number] ADM DATE: 12/26/19 AGE: 59 : 60 SEX: M ROOM/BED: D.03 AUTHOR: JARET,DOC PHYSICIAN: REFERRING PHYSICIAN: DENIS SIMEON MD DATE OF SERVICE: 12/30/19 Discharge Plan Patient Name: FLORENTIN AWAD Facility: [facility]:[place] : 1960 Planned Disposition: Home Anticipated Discharge Date: Discharge Date: 12/30/2019 Expected LOS: Initial Reviewer: [email or web address] Initial Review Date: 12/26/2019 Generated: 12/30/19 5:48 pm DCP- Discharge Planning Updated by [email or web address]: Michelle Butler on 12/27/19 4:[address] Patient Name: FLORENTIN AWAD Admission Status: Urgent Accout number: [id number] Admission Date: 12-26-2019 : 1960 Admission Diagnosis: Attending: DENIS SIMEON Current LOS: 1 Anticipated DC Date: Planned Disposition: Home Primary Insurance: [employer]GED [employer] Discharge Planning Comments: CM spoke with patient to complete initial dc planning assessment. CM educated patient on the CM role and verbal consent given by patient to complete assessment. Patient lives at home with family where he is independent with his care. At discharge plans to return home. CM discussed availability of home health, rehab services, and medical equipment. Patient will have family to transport him home. Patient denies any known discharge needs at this time. CM will continue to follow and will assist as needed with dc plans/needs. Sql Consultant: Michelle Butler DCPIA - Discharge Planning Initial Assessment Updated by [email or web address]: Michelle Butler on 12/27/19 5:50 pm * Is the patient Alert and Oriented? Yes * How many steps to enter\exit or inside your home? * PCP FIGUEROA * Pharmacy [facility] * Preadmission Environment Home with Family * ADLs Independent * Equipment None * List name and contact numbers for known caregivers / representatives who currently or will assist patient after discharge: HUGH OVALLE - [phone] * Verbal permission to speak to the caregivers and representatives has been obtained from the patient. Yes * Community resources currently utilized None * Additional services required to return to the preadmission environment? No * Can the patient safely return to the preadmission environment? Yes * Has this patient been hospitalized within the prior 30 days at any hospital? No Last DP export: 12/27/19 4:56 p Patient Name: FLORENTIN AWAD Page [phone] at 1648 All edits/amendments must be made on the electronic document DICTATION DATE: 12/30/191647 ZONING ASSISTANT: CHEN 12/30/191647 RPT#: [id number] DC DATE:12/30/19 STATUS: DIS IN [facility] [address] [place] [address] END OF REPORT
== END 2019-12-30 13:21 | disposition home or self-care (01) | DRG 271 ==
LOC: D.SDCHOLD 07:30 → D.CVICU 12-26 05:16 → D.SDCHOLD 12-26 07:30 → D.CVICU 12-26 11:39
PROVIDERS: Family Medicine; ADMIT Thoracic Surgery (Cardiothoracic Vascular Surgery); ATTEND Thoracic Surgery (Cardiothoracic Vascular Surgery)
PROC: 0D9670Z Drainage of Stomach with Drainage Device, Via Natural or Artificial Opening (ICD-10-PCS; 2019-12-26)
PROC: 04100JK Bypass Abdominal Aorta to Bilateral Femoral Arteries with Synthetic Substitute, Open Approach (ICD-10-PCS; principal; 2019-12-26 07:30)
DX: I70.223 Atherosclerosis of native arteries of extremities with rest pain, bilateral legs (principal); J98.11 Atelectasis; I70.0 Atherosclerosis of aorta; I10 Essential (primary) hypertension; J44.9 Chronic obstructive pulmonary disease, unspecified; N32.81 Overactive bladder; B18.2 Chronic viral hepatitis C; Z72.0 Tobacco use

== ENCOUNTER 2020-02-20 06:14 | Outpatient (CLI) | payer OTHER ==
[~2020-02-20] VITALS: Ht 182.9 cm; Wt 85.2 kg
--- NOTE | ~2020-02-20 | HEMODYNAMI ---
PATIENT:FLORENTIN AWAD MEDICAL RECORD: [id number] : 60 LOCATION:[facility] ADMISSION DATE: 02/20/20 Generatedon:02/20/20208:44 Patient name: FLORENTIN AWAD Patient #: [id number] SSN: [id number] : 1960 Date of study: 02/20/2020 Page: Of Hemodynamic Procedure Report Patient Data Patient Demographics First Name: FLORENTIN Gender: Male Last Name: DELMI : 1960 [facility] Initial: TAISHA Age: 59 year(s) Patient #: [id number] Race: SSN: [id number] Additional ID: [id number] Contact details Address: [address] [place] [address] State: [place] City: [place] Zip code: [address] Past Medical History Allergies: No known allergies Admission Admission Data Admission Date: 02/20/2020 Admission Time: 6:14 Arrival Date: 02/20/2020 Arrival Time: 0:00 Admit Source: Other Insurance Payor: Medicaid [facility] #: [id number] Height (in.): 72 BSA: 2.05 (m2) Height (cm.): 182.88 BMI: 24.68 (kg/m2) Weight (lbs.): 182 Weight (kg.): 82.55 Lab Results Lab Result Date: 02/20/2020 Lab Result Time: 0:00 Biochemistry Name Units Result Min Max BUN mg/dl 25 --(----)-* 7 18 Creatinine mg/dl 0.8 --(-*--)-- 0.6 1.3 eGFR ml/min 90 --(*---)-- 90 120 NONAFRICAN CBC Name Units Result Min Max Hemoglobin g/dl 13.3 -*(----)-- 13.5 17.5 Procedure Procedure Types Cath Procedure Diagnostic Procedure Sedation Charges Moderate Sedation up to 30 minutes PCI Procedure Coronary Stent Coronary Stent Initial x2 Hemochron ACT Test Procedure Description Procedure Date Procedure Date: 02/20/2020 Procedure Start Time: 8:16 Procedure End Time: 8:43 Procedure Staff Name Function Kitty Hairston MD Ordering physician Yonis Mathews MD Performing Physician Minerva Garrido RT Monitor Beckie Miguel RN Nurse Tonya Jackson RT Scrub Indication CAD Procedure Data Cath Procedure Fluoroscopy Diagnostic fluoroscopy Total fluoroscopy Time: 5.1 time: 5.1 min min Diagnostic fluoroscopy Total fluoroscopy dose: 489 dose: 489 mGy mGy Contrast Material Contrast Material Type Amount (ml) Isovue 300 89 Entry Location Entry Primary Successful Side Size Upsize Upsize Entry Closure Alex ccessful Closure Location (Fr) 1 (Fr) 2 (Fr) Remarks Device Remarks Radial Right 6 Fr Mechanical artery Short Compression Estimated blood loss: 5 ml Procedure Complications No complications Procedure Medications Medication Administration Route Dosage 0.9% NaCl I.V. 100 ml/hr Oxygen etCO2 Nasal cannula 2 l/min Lidocaine 2% added to field 20 Heparin Flush Bag added to field 2 bags (1000units/500ml NS) Radial Cocktail added to field 1 syringe (Verapamil 2mg/Nitro 400mcg/Heparin 1500units) Versed I.V. 2 mg Fentanyl I.V. 50 mcg Hemodynamics Rest BSA: 2.05 (m2) HGB: 13.3 (g/dl) O2 Consumption: Estimated: 278.8 (ml/min) O2 Con sumption indexed: Estimated:136 (ml/min/m) Pre Cath Intra NCS Post Cath Vital Signs Time Heart Resp SPO2 etCO2 NIBP (mmHg) Rhythm Pain Sedation Rate (ipm) (%) (mmHg) Status Level (bpm) 8:05:02 57 12 97 36.7 128/80(106) SB 0 (11) 10(A) , No pain 8:10:01 58 12 97 25.6 129/69(101) SB 0 (11) 10(A) , No pain 8:14:18 58 11 97 3 119/71(101) SB 0 (11) 10(A) , No pain 8:18:29 56 10 96 5.2 119/74(102) SB 0 (11) 9(A) , No pain 8:22:52 54 15 96 34.5 113/65(91) SB 0 (11) 9(A) , No pain 8:27:03 58 12 98 6.7 119/69(95) SB 0 (11) 9(A) , No pain 8:31:20 49 11 97 17.2 114/64(100) SB 0 (11) 9(A) , No pain 8:35:29 56 12 96 1.5 120/73(91) SB 0 (11) 9(A) , No pain 8:39:43 52 10 98 2.2 129/68(94) SB 0 (11) 10(A) , No pain 8:43:51 49 11 96 3.7 120/72(106) SB 0 (11) 10(A) , No pain Medications Time Medication Route Dose Verified Delivered Reason Notes Ef fectiveness by by 8:03:57 0.9% NaCl I.V. 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 2 mg Yonis Beckie for Reid Miguel sedation RN 8:13:12 Fentanyl I.V. 50 mcg Yonis Beckie for Reid Miguel sedation recovery operator helper Log Time Note 7:44:48 Arrival Date: 02/20/2020 12:00:00 AM 7:45:04 Admit Source: Other 7:45:15 Insurance Payor : Medicaid 7:46:29 Patient Weight : 182 lbs 7:46:32 Patient Height : 72 inches 7:48:12 Lab Result : BUN 25 mg/dl 7:48:12 Lab Result : Hemoglobin 13.3 g/dl 7:48:12 Lab Result : eGFR NONAFRICAN 90 ml/min 7:48:12 Lab Result : Creatinine 0.8 mg/dl 7:48:37 Diagnostic Cath Status : Elective 7:48:53 Indication : CAD 7:49:16 Procedure Status Elective Heart Cath (OP). 7:49:19 Beckie Miguel RN sent for patient. Start room use. 7:49:20 Time tracking: Regular hours (M-F 7:00 - 5:00) 7:49:26 Plan of Care:Hemodynamics will remain stable., Cardiac rhythm will remain stable., Comfort level will be maintained., Respiratory function will remain adequate., Patient/ family verbilizes understanding of procedure., Procedure tolerated without complication., Recovers from procedure without complications.. 7:49:36 Patient received from Pre/Post Procedure Room to CCL 1 Alert and oriented. Tansferred to table in Supine position. 7:49:49 H&P Date Dictated: 02/17/2020 Within 30 days and on chart., H&P Addendum completed by physician on day of procedure. (MUST COMPLETE FOR ALL OUTPATIENTS). 7:49:51 Pre-procedure instructions explained to patient. 7:50:06 Family in waiting room. 7:50:35 Patient NPO since Midnight. 7:50:44 Patient allergic to No known allergies 7:50:53 Is the patient allergic to Iodine/contrast media? No. 7:50:59 Was the patient premedicated? Yes 8:03:49 Vital chart was started 8:03:57 0.9% NaCl 100 ml/hr I.V. was administered by Beckie Miguel RN; used for procedure; Verbal order read back and verified. 8:04:03 Oxygen 2 l/min etCO2 Nasal cannula was administered by Beckie Miguel RN; used for procedure; Verbal order read back and verified. 8:04:08 Lidocaine 2% 20ml vial added to field was administered by Yonis Mathews MD; for local anesthetic; Verbal order read back and verified. 8:04:13 Heparin Flush Bag (1000units/500ml NS) 2 bags added to field was administered by Yonis Mathews MD; used for procedure; Verbal order read back and verified. 8:04:19 Radial Cocktail (Verapamil 2mg/Nitro 400mcg/Heparin 1500units) 1 syringe added to field was administered by Yonis Mathews MD; used for procedure; Verbal order read back and verified. 8:08:13 Is patient on blood thinner?No 8:08:16 Patient diabetic? No. 8:08:24 Snore? Yes 8:08:29 Sleep apnea? No 8:08:34 Airway obstruction? No ? 8:08:40 Patient pain scale 0/10 ?. 8:08:46 IV patent on arrival in left hand with 0.9% NaCl at [facility]. 8:08:52 Lab results completed and on chart. 8:08:57 Right Radial & Right Groin area was prepped with chlora-prep and draped in sterile fashion 8:08:58 Alarms reviewed by RHanna N. 8:08:59 Sharps counted by scrub and verified by R.N. 8:10:03 Physician arrived 8:10:03 --------ALL STOP TIME OUT------ 8:10:04 Final Timeout: patient, procedure, and site verified with staff and physician. All members of the team are in agreement. 8:10:06 Right Radial & Right Groin site verified by team. 8:10:10 Fire Safety Assessment: A--An alcohol-based skin anteseptic being used preoperatively., C--Open oxygen or nitrous oxide is being used., D--An ESU, laser, or fiber-optic light is being used. 8:10:20 Physical assessment completed. ASA score P 3 - A patient with severe systemic disease as per Yonis Mathews MD. 8:10:24 1) 90+ Normal kidney functon but urine findings or structural abnormalities or genetic trait point to kidney disease. 8:10:27 Maximum allowable contrast dose (3.7 X eGFR X 0.75)250 ml. 8:10:32 Sedation plan: IV Moderate Sedation Medication:Versed, Fentanyl 8:10:40 Use device set Radial Dx or PCI 8:10:45 ACIST Syringe (83657) opened to sterile field. 8:10:46 Medline Cath Pack ([id number]) opened to sterile field. 8:10:46 Bag Decanter (2002) opened to sterile field. 8:10:47 ACIST Hand Control (25381) opened to sterile field. 8:10:47 ACIST Manifold (57728) opened to sterile field. 8:10:50 MBrace Wrist Support ([id number]) opened to sterile field. 8:10:52 NEEDLE Cook 21G 4cm Radial (W61971) opened to sterile field. 8:10:55 EMERALD Guide Wire (502-226) opened to sterile field. 8:10:56 SHEATH 6FR RAIN (5478908) opened to sterile field. 8:11:59 TUBING High Pressure Extension Tubing (Reid) ([id number]) opened to sterile field. 8:12:00 INFLATOR Merit Janki (FE3666) opened to sterile field. 8:12:01 BMW 300cm [place] 2 J wire ([id number]) opened to sterile field. 8:13:06 Versed 2 mg I.V. was administered by Beckie Miguel RN; for sedation; Verbal order read back and verified. 8:13:12 Fentanyl 50 mcg I.V. was administered by Beckie Miguel RN; for sedation; Verbal order read back and verified. 8:16:29 Procedure started. 8:16:29 Full Disclosure recording started 8:16:52 Local anesthetic to right femoral artery with Lidocaine 2% by Yonis Mathews MD.INITIAL ACCESS ONLY 8:16:55 Zero performed for pressure channel P1 8:18:37 GUIDE 6FR XBLAD 3.5 catheter ([id number]) opened to sterile field. 8:19:37 A 6 Fr Short sheath was inserted into the Right Radial artery 8:19:53 J wire advanced. 8:20:10 Pre PCI Site: [place] mCirc has 80% stenosis. 8:20:20 6 Fr XBLAD3.5 guide catheter was inserted over the wire 8:24:49 Wire advanced across lesion. 8:24:56 bmw wire advanced. 8:30:51 Place stent Inflation Number: 1 A INTEGRITY RX 2.5 x 22 stent ([id number]) was prepped and advanced across the Mid CX 80. The stent was deployed at 12 WING for 0:21 (min:sec) 0. 8:31:33 Stent catheter was removed intact over wire. 8:32:16 Wire redirected to LAD. 8:37:59 Place stent Inflation Number: 1 A INTEGRITY RX 3.0 x 15 stent ([id number]) was prepped and advanced across the Prox LAD 80. The stent was deployed at 14 WING for 0:20 (min:sec) . 8:38:27 ZEPHYR REGULAR TR BAND (492597) opened to sterile field. 8:38:32 Stent catheter was removed intact over wire. 8:38:34 Wire removed. 8:38:34 Guide catheter removed. 8:39:12 Sheath removed intact; hemostasis achieved with Mechanical Compression to the Right Radial artery. 8:39:15 Procedure ended.(Physican Out) 8:39:25 Fluoroscopy time 05.10 minutes. 8:39:48 Fluoroscopy dose: 489 mGy 8:39:48 Flurop Dose total: 489 8:39:55 Dose Area Product 64410 mGy/cm. 8:40:07 Contrast amount:Isovue 300 89ml. 8:40:10 Maximum allowable dose exceeded? No. 8:40:13 Lillian band inflated with 10cc of air. 8:40:19 Insertion/operative site no bleeding no hematoma. 8:40:27 Post Procedure Pulses reassessed and unchanged 8:41:47 Post-procedure physical assessment completed. ASA score P 3 - A patient with severe systemic disease as per Yonis Mathews MD. 8:41:52 Post procedure rhythm: unchanged. 8:41:57 Estimated blood loss: 5 ml 8:41:58 Post procedure instruction explained to patient.Patient verbalizes understanding. 8:42:34 Procedure type changed to Cath procedure, Diagnostic procedure, Sedation Charges, Moderate Sedation up to 30 minutes, PCI procedure, Coronary Stent, Coronary Stent Initial x2, Hemochron ACT Test 8:42:35 Procedure and supply charges have been captured, reviewed, submitted and are correct. 8:43:07 Procedure Complication : No complications 8:43:13 Vital chart was stopped 8:43:15 [facility] Findings: MVD- PCI performed (see procedure note) 8:43:17 See physician's report for complete and final results. 8:43:19 Report given to Pre/Post Procedure Room. 8:43:22 Patient transfered to Pre/Post Procedure Room with Stretcher. 8:43:24 Procedure ended. 8:43:24 Full Disclosure recording stopped 8:43:27 End room use (Document Last) 8:43:44 ACT drawn and resulted at >400- out of range seconds. (normal therapeutic range 180-240 seconds). 8:44:04 End room use (Document Last) 8:44:22 End room use (Document Last) Intervention Summary Intervention Notes Time ActionType Lesion and Equipment Action# Pressure Duration Attributes Used 8:30:51 Place stent Mid CX INTEGRITY RX 1 12 00:21 2.5 x 22 stent ([id number]) 8:37:59 Place stent Prox LAD INTEGRITY RX 1 14 00:20 3.0 x 15 stent ([id number]) Device Usage Item Name Manufacture Quantity Catalog Hospital Part Current Minim al Lot# / Number Charge Number Stock Stock Serial# Code ACIST Acist 1 32615 206908 [id number] [id number] 20 Syringe Medical (54468) Systems Inc Medline Cath Medline 1 [id number] 275359 04417 008247 5 Pack ([id number]) Bag Decanter Microtek 1 2001S 865207 91922 153938 5 () Medical Inc. ACIST Hand Acist 1 37089 911721 967158 808157 5 Control Medical (17511) Systems Inc ACIST Acist 1 98985 699527 232041 459181 5 Manifold Medical (81426) Systems Inc MBrace Wrist Advanced 1 140-0250-00 797022 02603 224072 5 Support Vascular ([id number]) Dynamics NEEDLE [facility] Medical 1 Z12323 606287 659963 026118 5 21G 4cm Radial (D10964) EMERALD Cardinal 1 502-455 733561 972279 769237 5 Guide Wire Health (502-455) SHEATH 6FR Cardinal 1 [id number] 652166 9617265 336388 5 [facility] (7961655) TUBING High Merit 1 [id number] 687514 23986 589653 10 Pressure Medical Extension Tubing (Mathews) (JS5502X) INFLATOR Merit 1 JU5169 744705 105557 092013 15 [facility] Medical BasixCompak (TS5853) BMW 300cm Singleton 1 [id number] 071987 407513 070373 5 [place] 2 Vascular J wire (5944396S) GUIDE 6FR Cardinal 1 [id number] 883998 407434 162068 10 XBLAD 3.5 Health catheter (12280069) INTEGRITY RX Medtronic 1 [id number] 379470 188174 953436 5 [id number] 2.5 x 22 stent ([id number]) INTEGRITY RX Medtronic 1 [id number] 953162 236133 847479 5 [id number] 3.0 x 15 stent ([id number]) ZEPHYR Cardinal 1 918168 942376 0481349 673768 5 REGULAR TR Health BAND (565590) Signature Audit [place] Stage Time Signature Unsigned Intra-Procedure 02/20/2020 Minerva Garrido 8:44:04 AM RT(R) Intra-Procedure 02/20/2020 Beckie Miguel 8:44:22 AM RN Intra-Procedure 02/20/2020 Yonis Mathews MD 8:44:46 AM [facility] [address] [facility]
[~2020-02-20 06:14] MED LIST changes: +PERCOCET 5-3251 TAB PO; +TOPROL XL25 MG PO
[2020-02-20] MEDS ORDERED: ZOLOFT50 MG PO (06:37)
[2020-02-20 06:50] VITALS: BP 151/68; Ht 182.9 cm; Wt 85.2 kg
[2020-02-20 07:11] LABS: BASOPHILS 0.1 % (0-2); HEMATOCRIT 41.1 % (42.0-54.0); HEMOGLOBIN 13.3 g/dL (13.5-17.5); IMMATURE GRANULOCYTES 0.4 % (0-5); LYMPHOCYTES 38.3 % (15-50); MCH 30.8 pg (26.0-34.0); MCHC 32.4 g/dL (31.0-37.0); MCV 95.1 fL (80.0-100.0); MEAN PLATELET VOLUME 10.4 fL (7.4-10.4); MONOCYTES 6.7 % (2-11); NEUTROPHILS 50.5 % (40-80); PLATELET COUNT 205 10x3/uL (130-400); RBC 4.32 10x6/uL (4.20-6.10); RDW 13.7 % (11.5-14.5); WBC 7.3 10x3/uL (4.8-10.8)
[2020-02-20 07:25] LABS: CALC OSMOLALITY 275 mosm/kg (275-300); CALCIUM 8.8 mg/dL (8.5-10.1); CARBON DIOXIDE 26.6 mmol/L (21.0-32.0); CHLORIDE - SERUM 103 mmol/L (98-107); CREATININE - SERUM 0.8 mg/dL (0.6-1.3); GLUCOSE 100 mg/dL (74-106); POTASSIUM - SERUM 4.2 mmol/L (3.5-5.1); SODIUM 136 mmol/L (136-145); UREA NITROGEN 25 mg/dL (7-18); eGFR NON AFRICAN AMERICAN > 90 mL/min (90-120)
--- NOTE | 2020-02-20 08:55 | NUR ---
PT RECEIVED VIA STRETCHER FROM [employer]ALITY SYSTEMS ENGINEER FOR RECOVERY. PT DROWSY, VERBALLY AROUSABLE. PT DENIES PAIN OR DISCOMFORT. ZYPHER BAND AND IMMOBILIZER TO R WRIST/ARM. ARM PINK AND WARM, CAP REFILL BRISK. IV PATENT INFUSING VIA ORDERS TO L HAND. PT PLACED ON CARDIAC MONITORS AND O2 VIA NC AT 2L. HR SB 48, BP 130/71, RR 7, SAT 98. PT INSTRUCTED NOT TO USE R ARM, HE VERBALIZED UNDERSTANDING. CALL LIGHT IN REACH, AT BS.
--- NOTE | 2020-02-20 09:15 | NUR ---
PT RESTING COMFORTABLY, ZBAND AND IMMOBILIZER IN PLACE. DRESSING CDI NO S/S HEMATOMA. VSS. CALL LIGHT IN REACH
[2020-02-20] MEDS ORDERED: PLAVIX75 MG PO (09:33)
--- NOTE | 2020-02-20 10:00 | NUR ---
PT SLEEPING COMFORTABLY, ZBAND AND IMMOBILIZER IN PLACE. DRESSING CDI NO S/S HEMATOMA OR BLEEDING NOTED. ARM PINK AND WARM, CAP REFILL BRISK. VSS. CALL LIGHT IN REACH
--- NOTE | 2020-02-20 10:30 | NUR ---
PT CONTINUES SLEEPING W/O COMPLAINTS OR NEEDS. ZBAND AND IMMOBILIZER IN PLACE, DRESSING TO WRIST CDI NO S/S HEMATOMA. VSS. CALL LIGHT IN REACH
--- NOTE | 2020-02-20 11:00 | NUR ---
NO CHANGE IN CONDITION, PT STILL RESTING COMFORTABLY. ZBAND AND IMMOBILIZER IN PLACE, DRESSING CDI NO S/S HEMATOMA OR BLEEDING. CALL LIGHT IN REACH
--- NOTE | 2020-02-20 11:30 | NUR ---
ZBAND IN PLACE, DRESSING CDI NO S/S HEMATOMA NOTED.
--- NOTE | 2020-02-20 12:14 | NUR ---
4 ADD'L CC AIR REMOVED FROM Z BAND, NO BLEEDING OR S/S HEMATOMA NOTED. HOB ELEVATED AND LUNCH SERVED. PT DENIES PAIN OR NEEDS. VSS CALL LIGHT IN REACH
--- NOTE | 2020-02-20 12:50 | NUR ---
DISCHARGE INSTRUCTIONS REVIEWED W PT AND , BOTH VERBALIZED UNDERSTANDING. IV REMOVED W CATH INTACT. MONITORS AND O2 REMOVED. ZBAND AND IMMOBILIZER IN PLACE, NO BLEEDING NOTED. PT UP TO DRESS FOR DISCHARGE
--- NOTE | 2020-02-20 13:10 | NUR ---
ZBAND AND REMAINING AIR REMOVED, NO BLEEDING NOTED. 2X2 AND SM TEGADERM DRESSING APPLIED. PT DISCHARGED VIA WC TO WAITING IN PRIVATE VEHICLE. PT HAD ALL BELONGINGS AND DISCHARGE PAPERWORK
== END 2020-02-20 13:10 | disposition home or self-care (01) ==
LOC: D.CATH 06:14
PROVIDERS: ATTEND Internal Medicine Cardiovascular Disease
DX: I25.10 Atherosclerotic heart disease of native coronary artery without angina pectoris (principal); R94.39 Abnormal result of other cardiovascular function study; Z72.0 Tobacco use; E78.5 Hyperlipidemia, unspecified

== ENCOUNTER → 2020-12-07 10:45 | Outpatient (CLI) | payer OTHER ==
[~2020-12-07 10:45] MED LIST changes: +PLAVIX75 MG PO; +ZOLOFT50 MG PO
== END | disposition home or self-care (01) ==
LOC: D.US 10:45
DX: I70.3 Atherosclerosis of unspecified type of bypass graft(s) of the extremities (principal)